=== PATIENT | female | born 1950 | race Caucasian/White ===

== ENCOUNTER 2019-06-05 16:23 | Inpatient (IN) ==
[2019-06-05] MEDS ORDERED: NS 1,000 ML IV ONE (16:39)
[2019-06-05] MEDS ORDERED: BENTYL IM ONE (16:40)
[2019-06-05] MEDS ORDERED: SODIUM CHLORIDE 0.9% INJ ONE (16:41)
[2019-06-05] MEDS ORDERED: PHENERGAN IV ONE (16:41)
--- NOTE | 2019-06-05 16:59 | Diag Imaging Result Doc PS360 ---
EXAM: CHEST-PORTABLE HISTORY: syncope TECHNIQUE: Single view COMPARISON: None. FINDINGS: The lungs are well expanded. The heart is not enlarged. The vessels are not distended. There are no infiltrates. No effusion identified. IMPRESSION: Negative exam. Electronically signed by Moshe Olson 06/05/2019 4:57 PM
[2019-06-05 17:37] LABS: BASO# 0.05 X1000 (0.0-0.2); BASO% 0.1 % (0.0-0.8); EOS# 0.03 X1000 (0.0-0.7); EOS% 0.1 % (0.0-10.0); HEMATOCRIT 42.3 % (37.0-47.0); HEMOGLOBIN 14.2 g/dL (12.0-16.0); IMM GRAN# 0.15 X1000 (0.0-0.04); IMM GRAN% 0.4 % (0.0-0.5); LYMPH# 2.57 X1000 (1.2-3.4); LYMPH% 7.4 % (20.5-51.1); MCH 30.3 PG (27-31); MCHC 33.6 g/dL (33-37); MCV 90.2 FL (81-99); MONO% 5.2 % (1.7-9.3); MPV 9.3 FL (7.4-10.4); NEUT# 29.98 X1000 (1.4-6.5); NEUT% 86.8 % (42.2-75.2); PLT 332 X1000 (130-400); RBC 4.69 XMIL (4.2-5.4); RDW 12.9 % (11.5-14.5); WBC 34.58 X1000 (4.8-10.8)
[2019-06-05 17:57] LABS: INR 1.42; PROTIME 17.6 Seconds (11.0-16.0)
[2019-06-05 17:58] LABS: PTT 38.4 Seconds (22.3-41.8)
--- NOTE | 2019-06-05 17:58 | EKG Report ---
Test Performed on : 06/05/2019 5:33:41 PM Test Reason : syncope Blood Pressure : / mmHG Vent. Rate : 069 BPM Atrial Rate : 069 BPM P-R Int : 154 ms QRS Dur : 076 ms QT Int : 396 ms P-R-T Axes : 000 107 -50 degrees QTc Int : 424 ms Normal sinus rhythm. Lateral infarct , age undetermined T wave abnormality, consider anterior ischemia Abnormal ECG No previous ECGs available Unconfirmed Result
[2019-06-05] MEDS ORDERED: LEVSIN-SL PO ONE (18:00)
[2019-06-05] MEDS ORDERED: LEVSIN PO ONE (18:00)
[2019-06-05 18:19] LABS: ALB/GLOB RATIO 1.4; ALBUMIN 4.1 g/dL (3.5-5.0); CALCIUM 9.2 mg/dL (8.8-10.2); CREATININE 1.6 mg/dL (0.5-0.9); POTASSIUM 3.1 mmol/L (3.5-5.1); TOTAL BILIRUBIN 0.45 mg/dL (0.20-1.00); TOTAL PROTEIN 7.1 g/dL (6.3-8.3)
[2019-06-05] MEDS ORDERED: ZOSYN 4.5 GM in NS 100 ML IV ONE (18:25)
[2019-06-05 18:31] LABS: ANISOCYTOSIS OCCASIONAL; BANDS 3 % (0-1); LYMPHS 6 % (21-51); MONO 4 % (1-9); SEGS 86 % (42-75)
[2019-06-05 18:37] LABS: URINE SOURCE CATH
[2019-06-05 18:44] LABS: BILIRUBIN URINE SMALL (NEGATIVE); BLOOD URINE TRACE (NEGATIVE); COLOR YELLOW; GLUCOSE URINE NEGATIVE (NEGATIVE); KETONE URINE TRACE mg/dL (NEGATIVE); LEUKOCYTES URINE TRACE (NEGATIVE); NITRITE URINE NEGATIVE (NEGATIVE); PH URINE 5.5; PROTEIN URINE 50 mg/dL (NEGATIVE); SP GRAVITY URINE 1.026; TURBIDITY URINE HAZY (CLEAR); UROBILINOGEN URINE 4 mg/dL (NORMAL)
[2019-06-05 18:45] LABS: UR EPITHELIAL CELLS <10 /HPF (<10); URINE BACTERIA 4+ /HPF; URINE RBC <10 /HPF (<10); URINE WBC <10 /HPF (<10)
--- NOTE | 2019-06-05 19:22 | Diag Imaging Result Doc PS360 ---
EXAM: CT ABDOMEN/PELVIS W/O CONTRAST - 06/05/2019 HISTORY: nausea and vomiting, abdominal pain TECHNIQUE: CT abdomen/pelvis without contrast. No contrast administered per request of the referring provider. COMPARISON: None. FINDINGS: There is some limitation of detail without administered contrast. The visualized lung bases appear clear except for slight dependent atelectasis or scarring. The gallbladder surgically absent. There is some prominence of the common bile duct which likely relates to the postcholecystectomy state. There is no calcified common duct stone identified. There is no pancreatic mass or inflammation identified. There are no substantial abnormalities of the liver, spleen, or adrenal glands identified. There is no renal stone or hydronephrosis identified. There are no substantial enlarged lymph nodes identified. There are atherosclerotic calcifications noted, including at the superior mesenteric artery. There is mild ectasia of the infrarenal aorta up to 2.5 x 2.3 cm. There is a small hiatal hernia. There is retained fluid in small bowel there is no indication of small bowel obstruction. There is mild diffuse distention of the colon with fecal debris. There is some fluid in the proximal colon. There is mild wall thickening along much of the colon with hazy infiltration of pericolic fat. This suggests colitis. There is no extraluminal gas or abscess identified. There is no free air or substantial free fluid identified. There has been prior hysterectomy. There is no abnormal pelvic mass or fluid collection identified. IMPRESSION: Apparent relatively generalized, relatively mild colitis. There is apparent underlying constipation. Retained fluid in small bowel which may relate to mild ileus or mild enteritis. No indication of small bowel obstruction. There is a small hiatal hernia. There are atherosclerotic calcifications noted, including at the superior mesenteric artery. There is mild ectasia of the infrarenal aorta up to 2.5 x 2.3 cm. This exam was performed using automated exposure control, adjustment of mA or kV according to patient size, and/or use of iterative reconstruction technique. Electronically signed by Sandro Soriano 06/05/2019 7:20 PM
[2019-06-05] MEDS ORDERED: MORPHINE IV ONE (19:31)
--- NOTE | 2019-06-05 20:10 | PROVIDER DOCUMENTATION ---
This chart was entered by Jennifer Barnes Scribe, acting as scribe for Zafar Amaro MD. HPI-Abdominal Pain/GI Problem - General Chief Complaint: Near Syncope Stated Complaint: NEAR SYNCOPE/ABD PAIN Time Seen by Provider: 06/05/19 16:36 Source: patient Allergies/Adverse Reactions: Patient Allergies Allergy/AdvReac Type Severity Reaction Status Date / Time No Known Allergies Allergy Verified 06/05/19 17:06 Home Medications: Home Medication List Medication Instructions Recorded Confirmed Last Taken Type Lisinopril/Hydrochlorothiazide 1 ea PO QPM 06/05/19 06/05/19 1 Day Ago History [Lisinopril-Hctz 20-12.5 mg Tab] ~06/04/19 Metoprolol [Lopressor] 50 mg PO QHS 06/05/19 06/05/19 1 Day Ago History ~06/04/19 Nifedipine [Procardia Xl] 30 mg PO QAM 06/05/19 06/05/19 06/05/19 History - History of Present Illness-ABD Nature of Presenting Problems: Patient is a 68 year old female who presents to the ED via EMS with generalized lower abdominal pain. States nausea, vomiting and lightheadedness with abdominal pain. Reports symptoms started this morning. Denies blood in emesis, urinary symptoms, chest pain and shortness of breath. EMS states giving patient zofran and NS prior to arrival. Abdominal Pain Onset Location: reports: other (generalized lower) Pain Radiation: reports: no radiation Quality of Pain: reports: dull, sharp Severity in ED: reports: mild Onset/Duration: reports: this morning Timing: reports: still present Activities at Onset: reports: light activity Associated Symptoms: reports: nausea, vomiting, other (lightheadedness) Emesis Description: denies: red blood, coffee grounds Bruising or Bleeding Gums?: No Similar Symptoms Previously?: No Recently seen or treated by another doctor?: No Review of Systems - Adult - REVIEW OF SYSTEMS - ADULT Constitutional: reports: no symptoms reported Eyes: reports: no symptoms reported Ears, Nose, Mouth & Throat: reports: no symptoms reported Cardiovascular: reports: no symptoms reported. denies: chest pain Respiratory: reports: no symptoms reported. denies: shortness of breath Gastrointestinal: reports: see HPI, abdominal pain (generalized lower), nausea, vomiting Genitourinary: reports: no symptoms reported Musculoskeletal: reports: no symptoms reported Integumentary: reports: no symptoms reported Neurological: reports: see HPI, other (lightheadedness). denies: headache/migraines, syncope Psychiatric: reports: no symptoms reported Endocrine: reports: no symptoms reported Hematologic/Lymphatic: reports: no symptoms reported Allergic/Immunologic: reports: no symptoms reported All Other Systems: Reviewed and Negative Past History - Adult - PAST MEDICAL HISTORY-ADULT Review of Records: reports: Old Records Reviewed, Nursing Assessment Review, Medications Reviewed, Social history reviewed & non-contributory. Major Childhood Illnesses: reports: denies history Cardiovascular: reports: HTN, ND Respiratory: reports: denies history Gastrointestinal: reports: denies history Obstetrical/Gynecological: reports: denies history Genitourinary: reports: denies history Musculoskeletal: reports: denies history Neurological: reports: CVA Endocrine/Immune: reports: denies history Other Conditions: reports: denies history - PRIOR SURGERIES/PROCEDURES Surgical/Procedure History: reports: reviewed, not pertinent, appendectomy, cholecystectomy, hysterectomy - IMMUNIZATION STATUS Childhood Immunizations: See Nurse Assessment Flu Vaccine: See Nurse Assessment - FAMILY HISTORY Family History: reviewed, not pertinent - SOCIAL HISTORY Smoking: denies Substance Use: denies Physical Exam-General - PHYSICAL EXAM-ADULT Initial Vital Signs Reviewed: Yes - CONSTITUTIONAL General Appearance: alert, no apparent distress. negative: lethargic - HEAD, EARS, NOSE, MOUTH & THROAT HENMT: normocephalic/atraumatic, moist mucous membranes. negative: angioedema - RESPIRATORY Respiratory: chest non-tender, lungs clear, normal breath sounds. negative: rales, increased rate - CARDIOVASCULAR Cardiovascular: regular rate, rhythm, no murmur. negative: tachycardia - GASTROINTESTINAL (ABDOMEN) Abdominal Exam: normal bowel sounds, soft, tenderness (RLQ, LLQ and suprapubic.) . negative: rigid - MUSCULOSKELETAL Extremity: non-tender, slow capillary refill. negative: swelling - SKIN Integumentary: normal turgor, warm/dry, pallor. negative: diaphoresis, rash - NEUROLOGIC Neurologic: grossly normal. negative: aphasia, facial droop - PSYCHIATRIC Psych/Mental Status: normal mood/affect, oriented x 3. negative: anxious Progress - PLAN OF CARE/RESULTS Progress/Plan/Lab Results: Vital Signs - 8 hr 06/05/19 16:41 Pulse Rate 54 L Respiratory Rate 16 Blood Pressure 90/44 O2 Sat by Pulse Oximetry 96 Orders Category Date Time Status CHEST-PORTABLE [RAD] Stat Exams 06/05/19 16:38 Taken BLOOD CULTURE [BLDCUL] Stat Lab 06/05/19 16:39 Ordered BNP [PRO B-NATRIURETIC PEPTIDE] Stat Lab 06/05/19 16:41 Uncollected CBC WITH ELECTRONIC DIFF [HEME] Stat Lab 06/05/19 16:38 Uncollected COMPREHENSIVE METABOLIC PANEL [CHEM] Stat Lab 06/05/19 16:38 Uncollected LACTATE, PLASMA [CHEM] Stat Lab 06/05/19 16:38 Uncollected LIPASE [CHEM] Stat Lab 06/05/19 16:38 Uncollected PROTIME WITH INR [COAG] Stat Lab 06/05/19 16:38 Uncollected PTT [COAG] Stat Lab 06/05/19 16:38 Uncollected TROPONIN T Stat Lab 06/05/19 16:38 Uncollected URINALYSIS W/POSS RFLX CULT [URINALYSIS] Stat Lab 06/05/19 16:38 Uncollected 0.9% Sodium Chloride Inj [Ns] 1,000 ml Med 06/05/19 16:39 Active IV 999 mls/hr Dicyclomine [Bentyl] Med 06/05/19 16:40 Discontinued 20 mg IM NOW ONE Hyoscyamine [Levsin] Med 06/05/19 16:40 Once 0.125 mg PO NOW ONE Promethazine [Phenergan] Med 06/05/19 16:41 Discontinued 25 mg IV NOW ONE Sodium Chloride 0.9% Med 06/05/19 16:41 Discontinued 10 ml INJ NOW ONE EKG [EKG] Stat Ther 06/05/19 16:[address] Camacho hospitalist for sepsis with zosyn and IV fluids with NS administered. Family and patient at bedside aware. Nausea much improved. Result Diagrams: 06/05/19 17:10 06/05/19 17:10 - EKG 1 Time of EKG reading by physician:: 17:33 EKG Read and Signed by:: Zafar Amaro EKG Interpretation (*Must complete 3 of following elements*): Normal Rate: 69 Rhythm: NSR [place]: normal QRS: normal MD Interval: normal ST Wave: normal Prior EKG Comparison: no prior EKG - XRAY 1 XRAY Study: Chest Impression: See EMR Report ( EXAM: CHEST-PORTABLE HISTORY: syncope TECHNIQUE: Single view COMPARISON: None. FINDINGS: The lungs are well expanded. The heart is not enlarged. The vessels are not distended. There are no infiltrates. No effusion identified. IMPRESSION: Negative exam. Electronically signed by Moshe Olson 06/05/2019 4:57 PM 06/05/19 2130 Interpreting Physician: Moshe Olson MD Dictated Date/Time: 06/05/19 5442 cc: Zafar Amaro MD; Wilfred Aggarwal MD) - CT/MRI 1 CT Study: Abdomen Impression: See EMR Report (EXAM: CT ABDOMEN/PELVIS W/O CONTRAST - 06/05/2019 HISTORY: nausea and vomiting, abdominal pain TECHNIQUE: CT abdomen/pelvis without contrast. No contrast administered per request of the referring provider. COMPARISON: None. FINDINGS: There is some limitation of detail without administered contrast. The visualized lung bases appear clear except for slight dependent atelectasis or scarring. The gallbladder surgically absent. There is some prominence of the common bile duct which likely relates to the postcholecystectomy state. There is no calcified common duct stone identified. There is no pancreatic mass or inflammation identified. There are no substantial abnormalities of the liver, spleen, or adrenal glands identified. There is no renal stone or hydronephrosis identified. There are no substantial enlarged lymph nodes identified. There are atherosclerotic calcifications noted, including at the superior mesenteric artery. There is mild ectasia of the infrarenal aorta up to 2.5 x 2.3 cm. There is a small hiatal hernia. There is retained fluid in small bowel there is no indication of small bowel obstruction. There is mild diffuse distention of the colon with fecal debris. There is some fluid in the proximal colon. There is mild wall thickening along much of the colon with hazy infiltration of pericolic fat. This suggests colitis. There is no extraluminal gas or abscess identified. There is no free air or substantial free fluid identified. There has been prior hysterectomy. There is no abnormal pelvic mass or fluid collection identified. IMPRESSION: Apparent relatively generalized, relatively mild colitis. There is apparent underlying constipation. Retained fluid in small bowel which may relate to mild ileus or mild enteritis. No indication of small bowel obstruction. There is a small hiatal hernia. There are atherosclerotic calcifications noted, including at the superior mesenteric artery. There is mild ectasia of the infrarenal aorta up to 2.5 x 2.3 cm. This exam was performed using automated exposure control, adjustment of mA or kV according to patient size, and/or use of iterative reconstruction technique. Electronically signed by Sandro Soriano 06/05/2019 7:20 PM) Comparison with other Films: no prior study Departure - Departure Date of Disposition Decision: 06/05/19 Time of Disposition Decision: 20:08 DIAGNOSIS: Sepsis, Nausea and vomiting, Urinary tract infection, Colitis Disposition: ADMITTED INPATIENT 09 Certified Medical Emergency: Emergent Condition: Fair Referrals and Follow-Ups: Wilfred Aggarwal MD [Primary Care Provider] - Discharge Education: Steps to Quit Smoking, [id number] - Critical Care Note This patient required my direct & personal management of CC.: No Attestation - Physician/ MARYBETH Attestation The physician spent face to face time with patient:: Yes Advanced Practice Provider documentation review:: Supervising physician onsite and consulted in the evaluation and care of this patient. The physician did have a face to face encounter with the patient. This chart was documented by the indicated scribe, (Jennifer Barnes Scribe) and accurately reflects the services I performed and decisions made by me, Zafar Amaro MD, as attested by the provider's signature.
--- NOTE | 2019-06-05 21:07 | HISTORY AND PHYSICAL ---
REASON FOR ADMISSION: Fever chills, and abdominal pain for 1 and 2 days respectively. HISTORY OF PRESENT ILLNESS: Ms. Ankita Barber is a 68-year-old woman with past medical history of hypertension, prior CVA, CAD status post stent placement. She states that for the last 2 days she was having lower abdominal pain which was initially intermittent and dull. Today, the pain became constant with intermittent episodes of sharp lower abdominal pain, which started a few seconds at a time. No specific aggravating or relieving factors. No diarrhea. She says she has had 1 large bowel movement while she has been in the hospital ER area and it was nonbloody, non- melanotic and semi-solid. She reports that she came in today because she was having intractable vomiting with the exacerbation of her abdominal pain. She has vomited 8 times. No coffee grounds or hematemesis. The patient reports having chills with profound diaphoresis, but no fever. Denies any flank pain. Denies any cough or cardiorespiratory complaints. Denies any genitourinary complaints. No bleeding from any orifice. No close contacts from a respiratory or GI standpoint. REVIEW OF SYSTEMS: Twelve system review was done. Positive findings per HPI. Allergies: None. HOME MEDICATIONS: Include lisinopril/hydrochlorothiazide 1 tab a day dose unknown, Lopressor 50 mg at bedtime, Procardia 30 mg q.a.m. SOCIAL HISTORY: Smokes 1 to 2 packs a day and drinks alcohol no more than every other month socially. No illicit drug use. , lives with her . FAMILY HISTORY: Notable for type 2 diabetes and heart disease in first-degree relatives. SURGICAL HISTORY: She has had a coronary stent placement, cholecystectomy, hysterectomy, appendectomy, knee surgery. LABORATORY WORK: Patient has a white count of 34,000 with a H H of 14 and 42, platelets 332,000, with a left shift of 86. Potassium is 3.1, BUN is 18, creatinine 1.6, with no prior labs to compare with. Glucose 156. Troponins negative. ProBNP 788, lactate 1.8. PT 17.6, INR 1.4, PTT is normal. Urinalysis is 4+ bacteria with trace ketones, trace leukocytes. Abdomen and pelvis CT showed fluid retention in the small bowel which may relate to small enteritis and calcifications superior mesenteric artery with mild colitis and underlying constipation. Chest film was done and it showed negative exam. PHYSICAL EXAMINATION: VITAL SIGNS: Blood pressure was 105/37, heart rate 64, respirations 18, temperature was 95.6, 98% on room air. GENERAL: She is a thin, middle-aged woman not in acute distress. She is alert and oriented to person, place and time. Normal mood and affect. HEAD: Normocephalic, atraumatic. EYES: PERRLA. EOMI. Anicteric and not pale. ENT: Oropharynx examination is grossly normal with mild xerostomia. No sinus cyanosis. NECK: Supple. No JVD or carotid bruit. No thyromegaly. CHEST: Clear when auscultated and good air entry in both lung mobley. CARDIOVASCULAR SYSTEM: First and second heart sounds heard. No gallops, murmurs, rubs. Rhythm is regular. ABDOMEN: Scaphoid, soft, with tenderness confined to the suprapubic and left lower quadrant area, but no rebound or guarding appreciated. There is questionable left CVA tenderness. Bowel sounds are normal. EXTREMITIES: Patient has decreased distal pulse volumes, regular, symmetrical. No edema, clubbing or cyanosis. NEUROLOGICAL SYSTEM: No gross focal deficits. SKIN: Intact. No breakdown or erythema with decreased skin turgor. MUSCULAR EXAM: Is grossly normal. ASSESSMENT: 1. Early sepsis, secondary to colitis and probable urinary tract infection. 2. Coronary artery disease. 3. Hypertension. 4. Probable acute kidney injury secondary to decreased intravascular volume and use of TATIANA inhibitors. PLAN: We will aggressively resuscitate patient with crystalloids. Continue with antibiotics in the ER, i.e. Zosyn to cover for colitis and urinary tract infection. Await urine cultures and blood cultures. Very conservative blood pressure control and parameters have been ordered. We will start the patient on a baby aspirin, especially since is no contraindication, being that she has had a stroke and she has documented peripheral arterial disease in the SMA and a prior history of a myocardial infarction. Other cardiac workup should be embarked upon and we will defer to Dr. Aggarwal for this. cc: MD Wilfred Whiting MD
[2019-06-05] MEDS ORDERED: TYLENOL PO PRN (22:52)
[2019-06-06] MEDS: ASPIRIN PO SCH ×2 (00:01→08:36)
[2019-06-06] MEDS: MORPHINE IV PRN ×5 (00:02→15:39)
[2019-06-06] MEDS: ZOSYN 3.375 GM in NS 50 ML IV SCH ×4 (00:02→18:02)
[2019-06-06] MEDS: NS 1,000 ML IV SCH ×3 (00:03→18:19)
[2019-06-06] MEDS: LOPRESSOR PO SCH ×2 (00:03→21:43)
[2019-06-06] MEDS: LOVENOX SUBQ SCH ×2 (00:03→23:09)
[2019-06-06 07:37] LABS: BASO# 0.01 X1000 (0.0-0.2); BASO% 0.1 % (0.0-0.8); HEMOGLOBIN 12.6 g/dL (12.0-16.0); IMM GRAN# 0.04 X1000 (0.0-0.04); IMM GRAN% 0.2 % (0.0-0.5); LYMPH# 1.88 X1000 (1.2-3.4); LYMPH% 11.2 % (20.5-51.1); MCH 30.1 PG (27-31); MCHC 33.2 g/dL (33-37); MCV 90.7 FL (81-99); MONO# 0.71 X1000 (0.11-0.59); MONO% 4.2 % (1.7-9.3); MPV 9.6 FL (7.4-10.4); NEUT# 14.08 X1000 (1.4-6.5); NEUT% 84.3 % (42.2-75.2); PLT 244 X1000 (130-400); RBC 4.19 XMIL (4.2-5.4); RDW 12.8 % (11.5-14.5); WBC 16.72 X1000 (4.8-10.8)
[2019-06-06 08:01] LABS: CALCIUM 8.2 mg/dL (8.8-10.2); CREATININE 1.2 mg/dL (0.5-0.9); MAGNESIUM 1.4 mg/dL (1.5-2.7); POTASSIUM 3.3 mmol/L (3.5-5.1)
[2019-06-06] MEDS: ADALAT CC PO SCH ×2 (08:36→10:09)
--- NOTE | 2019-06-06 09:19 | PROGRESS NOTE ---
DATE: 06/06/2019 Ms De Leon was admitted last night for early sepsis. She had abdominal pain. At present. She is doing fairly well, except her temperature is still 101.6. The culture studies are not back yet. Waiting on blood cultures as well as urine cultures. She is on IV Unasyn. We will continue with the current management on her. cc: Wilfred Aggarwal MD
[2019-06-06] MEDS ORDERED: MORPHINE IV PRN (17:08)
[2019-06-06] MEDS: NORCO-10 PO PRN (18:12)
[2019-06-06 19:05] LABS: BASO# 0.02 X1000 (0.0-0.2); BASO% 0.1 % (0.0-0.8); EOS# 0.01 X1000 (0.0-0.7); EOS% 0.1 % (0.0-10.0); HEMATOCRIT 34.3 % (37.0-47.0); HEMOGLOBIN 11.2 g/dL (12.0-16.0); IMM GRAN# 0.03 X1000 (0.0-0.04); IMM GRAN% 0.2 % (0.0-0.5); LYMPH# 1.64 X1000 (1.2-3.4); LYMPH% 11.6 % (20.5-51.1); MCH 29.9 PG (27-31); MCHC 32.7 g/dL (33-37); MCV 91.5 FL (81-99); MONO% 4.2 % (1.7-9.3); MPV 9.2 FL (7.4-10.4); NEUT# 11.82 X1000 (1.4-6.5); NEUT% 83.8 % (42.2-75.2); PLT 199 X1000 (130-400); RBC 3.75 XMIL (4.2-5.4); RDW 12.9 % (11.5-14.5); WBC 14.12 X1000 (4.8-10.8)
[2019-06-07] MEDS: ZOSYN 3.375 GM in NS 50 ML IV SCH ×4 (01:00→17:43)
[2019-06-07] MEDS: NORCO-10 PO PRN ×4 (04:21→22:21)
[2019-06-07 07:26] LABS: BASO# 0.02 X1000 (0.0-0.2); BASO% 0.1 % (0.0-0.8); EOS# 0.01 X1000 (0.0-0.7); EOS% 0.1 % (0.0-10.0); HEMATOCRIT 33.5 % (37.0-47.0); HEMOGLOBIN 10.9 g/dL (12.0-16.0); IMM GRAN# 0.03 X1000 (0.0-0.04); IMM GRAN% 0.2 % (0.0-0.5); LYMPH# 1.89 X1000 (1.2-3.4); LYMPH% 13.6 % (20.5-51.1); MCH 29.6 PG (27-31); MCHC 32.5 g/dL (33-37); MONO# 0.68 X1000 (0.11-0.59); MONO% 4.9 % (1.7-9.3); MPV 9.4 FL (7.4-10.4); NEUT# 11.24 X1000 (1.4-6.5); NEUT% 81.1 % (42.2-75.2); PLT 182 X1000 (130-400); RBC 3.68 XMIL (4.2-5.4); RDW 12.9 % (11.5-14.5); WBC 13.87 X1000 (4.8-10.8)
[2019-06-07] MEDS: ADALAT CC PO SCH (09:27)
--- NOTE | 2019-06-07 11:01 | PROGRESS NOTE ---
DATE: 06/07/2019 SUBJECTIVE: The patient says she is feeling much better. Still having some abdominal pain. Had a little blood in her stool yesterday but none today. OBJECTIVE: Blood pressure is 131/57, respirations 20, pulse 80, temperature 98.2 degrees Fahrenheit. HEENT: She is normocephalic and atraumatic. PERRLA. Nose clear. Lungs: Clear to auscultation and percussion without rhonchi, rales or wheezes. Heart: Sounds regular rate and rhythm with murmurs, gallops or friction rubs. Abdomen: Soft with only mild tenderness on palpation. Neurologic: Intact grossly. Potassium was low at 3.3 yesterday. We will supplement. Since she does have a colitis, we will add Flagyl. Since she is improving, we will hold off on getting GI to see her today. Dr. Aggarwal can decide if she gets worse if she needs to see Dr. Banks, her staff mechanical engineer, again. FINAL DIAGNOSES: 1. Colitis. 2. Urinary tract infection. 3. Hypokalemia. cc: MD Wilfred Do Jr, MD
[2019-06-07] MEDS: KLOR-CON PO SCH (11:02)
[2019-06-07] MEDS: FLAGYL PO SCH ×2 (13:04→20:27)
[2019-06-07] MEDS: LOPRESSOR PO SCH (20:14)
[2019-06-07] MEDS: LOVENOX SUBQ SCH ×2 (20:28→22:21)
[2019-06-07] MEDS: ASPIRIN PO SCH (20:28)
[2019-06-07] MEDS: ZOFRAN IV PRN (20:33)
[2019-06-08] MEDS: ZOSYN 3.375 GM in NS 50 ML IV SCH ×4 (02:10→20:06)
[2019-06-08] MEDS: NORCO-10 PO PRN ×4 (04:32→22:36)
[2019-06-08] MEDS: FLAGYL PO SCH ×3 (04:32→20:06)
[2019-06-08 07:17] LABS: BASO# 0.02 X1000 (0.0-0.2); BASO% 0.2 % (0.0-0.8); EOS# 0.03 X1000 (0.0-0.7); EOS% 0.3 % (0.0-10.0); HEMATOCRIT 33.3 % (37.0-47.0); HEMOGLOBIN 10.8 g/dL (12.0-16.0); LYMPH# 1.95 X1000 (1.2-3.4); LYMPH% 19.7 % (20.5-51.1); MCH 29.7 PG (27-31); MCHC 32.4 g/dL (33-37); MCV 91.5 FL (81-99); MONO# 0.68 X1000 (0.11-0.59); MONO% 6.9 % (1.7-9.3); MPV 9.2 FL (7.4-10.4); NEUT# 7.24 X1000 (1.4-6.5); NEUT% 72.9 % (42.2-75.2); PLT 185 X1000 (130-400); RBC 3.64 XMIL (4.2-5.4); RDW 12.6 % (11.5-14.5); WBC 9.92 X1000 (4.8-10.8)
[2019-06-08 07:35] LABS: CALCIUM 8.3 mg/dL (8.8-10.2); POTASSIUM 3.1 mmol/L (3.5-5.1)
[2019-06-08] MEDS: ZOFRAN IV PRN (08:50)
[2019-06-08] MEDS: ASPIRIN PO SCH (10:38)
[2019-06-08] MEDS: KLOR-CON PO SCH (10:39)
--- NOTE | 2019-06-08 10:55 | PROGRESS NOTE ---
DATE: 06/08/2019 Ms. Barber' white count has come down to 9.92. She is feeling better. She still is tender in her abdomen. She has bloody stools, indicating probably colitis. We are going to get a GI consult with Dr. Banks. Her urine culture grew Escherichia coli sensitive to most of the antibiotics. She has been on IV piperacillin, which I am going to continue. Will get a GI consult with Dr. Banks. Give her some tramadol for pain. -5 cc: Wilfred Aggarwal MD
[2019-06-08] MEDS: ADALAT CC PO SCH (11:04)
[2019-06-08] MEDS ORDERED: SODIUM CHLORIDE 0.9% INJ SCH (11:30)
--- NOTE | 2019-06-08 13:19 | GASTROENTEROLOGY CONSULTATION ---
DATE: 06/08/2019 REASON FOR CONSULTATION: Rectal bleeding. HISTORY OF PRESENT ILLNESS: Ms. Barber is a 68-year-old female who was admitted on 06/05/2019 for abdominal pain for 2 days, constipation, fever and chills. She said she had a fecal impaction and then she started hurting in her abdomen because of constipation and not being able to use the bathroom. She came to the hospital. In the ER, she had 1 large bowel movement which helped relieve her pain. Along with abdominal pain, she also had nausea, vomiting. She vomited about 8 times on the day of admission. Denies any vomiting blood. After her fecal impaction had improved, she started having liquid stools with bright red blood. Her last colonoscopy was done more than [address] Banks and she had 3 polyps and at that time she had C difficile infection in the colon which was treated with antibiotics. Since being in the hospital, she has been continuing to have stools with bright red blood mixed with them. She has been on Lovenox for DVT prophylaxis and she has been getting treatment with IV antibiotics in the form of Zosyn. She had CT of the abdomen and pelvis done on admission which showed: 1. Atherosclerotic calcification including the superior mesenteric artery. 2. Small hiatal hernia. 3. Mild diffuse distention of the colon with fecal debris. 4. Some fluid in the proximal colon. 5. Mild wall thickening along much of the colon with hazy infiltration of pericolonic fat suggesting colitis. No evidence of free air or extraluminal gas or abscess identified. There has been prior hysterectomy. Since being in the hospital, her blood cultures have been drawn which have been negative. Urine culture showed E coli. Gastroenterology was consulted for further management including colonoscopy. PAST MEDICAL HISTORY: Hypertension, CVA, CAD, stent placement, colon polyps, C difficile infection. PAST SURGICAL HISTORY: Coronary artery stent placement, cholecystectomy, hysterectomy, appendectomy, knee surgery, colonoscopy more than [address] Banks. FAMILY HISTORY: Type 2 diabetes and heart disease. SOCIAL HISTORY: Smokes 1 to 2 packs a day. She drinks alcohol, no more than once every other month socially. No history of illicit drug abuse. She is , she lives her . MEDICATIONS IN THE HOSPITAL: Include Lopressor, Flagyl, Tylenol, aspirin, Lovenox, Pepcid, hydrocodone/acetaminophen, morphine, nifedipine ER, Zofran, potassium chloride, tramadol 50 mg p.o. q.6 hours, Zosyn 3.375 g IV q.6 hours, and the patient is currently on a clear liquid diet. REVIEW OF SYSTEMS: Denies any fevers, rigors, chills, chest pain, shortness of breath, dyspnea. Denies any vomiting blood. Does complain of blood in the stools. Denies any major arthritis. Denies any neurologic complaints. PHYSICAL EXAMINATION: Vital signs: Temperature of 98.6 degrees, pulse rate 79, respiratory rate 19, blood pressure 160/68, saturating 92% on room air. Body weight of 125 pounds 3 ounces. BMI 24.4 kg/m2. General: Thinly built, lying in bed, in no acute distress. HEENT: Positive pallor. No icterus. Pupils equal, reactive to light. Neck: Supple. Abdomen: Discomfort in the left lower quadrant. No rebound or guarding. Extremities: No cyanosis, clubbing. Neurologic: She is alert, awake, oriented x3. LABORATORY DATA: 1. Hemoglobin and hematocrit is 10.8 and 33.3, white count 9.92, platelet count of 185,000. Sodium 139, potassium 3.1, chloride 101, bicarb 24, anion gap 14, BUN of 9, creatinine 1, glucose of 112, calcium is 8.3. AST 17, ALT 6, alkaline phosphatase 89, total protein is 7.4, albumin of 4.1. 2. Urinalysis showing positive protein, trace ketones, trace blood, small bilirubin, trace leukocytes, and E coli on urine culture. IMAGING: CT scan as noted in HPI. Chest x-ray on 06/05/2019 showed negative exam. IMPRESSION: 1. Rectal bleeding. 2. Colitis. 3. Chronic smoker. 4. 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 5. History of Clostridium difficile colitis more than 20 years ago. 6. History of colon polyps more than 20 years ago. 7. Hypertension. 8. History of cerebrovascular accident. 9. History of coronary artery disease. 10. History of coronary stent placement. RECOMMENDATIONS: 1. We will continue the patient on clear liquid diet. We will schedule for colonoscopy tomorrow with Dr. Mosqueda. We will hold Lovenox in the morning. We will continue on IV antibiotics, IV antiemetics, and IV Pepcid b.i.d. Continue pain control with morphine. Her blood pressure is being managed by the primary care team here. 2. We will start her on probiotics with Culturelle as she had a prior history of C difficile colitis and she is continuing antibiotics. She was counseled to quit smoking completely. 3. Mild anemia. Continue to watch for now and hopefully will improve after treatment of colitis. If anemia worsens, then we will transfuse her to keep the hemoglobin more than 7 g/dL. The above plans were discussed with the patient and all questions answered. Please call us with any further questions. Thank you for allowing us to participate. cc: MD Wilfred Ortega MD
[2019-06-08] MEDS: CULTURELLE PO SCH ×2 (13:21→20:06)
[2019-06-08] MEDS: ULTRAM PO PRN ×2 (13:21→20:06)
[2019-06-08] MEDS: PEPCID IV SCH ×2 (13:22→23:45)
[2019-06-08] MEDS ORDERED: GOLYTELY PO ONE (14:00)
[2019-06-08] MEDS: LOPRESSOR PO SCH (20:06)
[2019-06-08] MEDS: LOVENOX SUBQ SCH (23:00)
[2019-06-09] MEDS: ZOSYN 3.375 GM in NS 50 ML IV SCH ×2 (02:18→09:31)
[2019-06-09] MEDS: FLAGYL PO SCH (04:20)
[2019-06-09] MEDS: ZOFRAN IV PRN (04:43)
[2019-06-09] MEDS ORDERED: DIPRIVAN 1% 0 MG/0 ML BOTTLE ONE (06:53)
[2019-06-09] MEDS ORDERED: FENTANYL ONE (07:03)
[2019-06-09] MEDS ORDERED: XYLOCAINE-MPF 2% ONE (07:05)
[2019-06-09 07:44] LABS: BASO# 0.02 X1000 (0.0-0.2); BASO% 0.2 % (0.0-0.8); EOS# 0.01 X1000 (0.0-0.7); EOS% 0.1 % (0.0-10.0); HEMATOCRIT 34.1 % (37.0-47.0); HEMOGLOBIN 11.1 g/dL (12.0-16.0); LYMPH# 1.79 X1000 (1.2-3.4); LYMPH% 22.2 % (20.5-51.1); MCH 29.8 PG (27-31); MCHC 32.6 g/dL (33-37); MCV 91.7 FL (81-99); MONO# 0.73 X1000 (0.11-0.59); MONO% 9.1 % (1.7-9.3); MPV 9.3 FL (7.4-10.4); NEUT# 5.51 X1000 (1.4-6.5); NEUT% 68.4 % (42.2-75.2); PLT 245 X1000 (130-400); RBC 3.72 XMIL (4.2-5.4); RDW 12.7 % (11.5-14.5); WBC 8.06 X1000 (4.8-10.8)
[2019-06-09 07:53] LABS: AGAP 17; BUN 7 mg/dL (8-22); CALCIUM 8.4 mg/dL (8.8-10.2); CHLORIDE 96 mmol/L (98-107); COSMO 269; CREATININE 0.9 mg/dL (0.5-0.9); ESTIMATED GFR > 60; GLUCOSE 90 mg/dL (70-104); POTASSIUM 3.2 mmol/L (3.5-5.1); SODIUM 136 mmol/L (136-145); TCO2 23 mmol/L (25-35)
[2019-06-09 09:23] VITALS: BP 150/61
[2019-06-09] MEDS: NORCO-10 PO PRN (09:30)
[2019-06-09] MEDS: CULTURELLE PO SCH (09:31)
[2019-06-09] MEDS: ADALAT CC PO SCH (09:32)
[2019-06-09] MEDS: ASPIRIN PO SCH (09:32)
[2019-06-09] MEDS: KLOR-CON PO SCH (09:32)
--- NOTE | 2019-06-09 11:01 | PROGRESS NOTE ---
DATE: 06/09/2019 SUBJECTIVE: Ms. Barber has Escherichia coli isolated from the urine, which is sensitive to all the antibiotics including levofloxacin. Her stool is negative for Clostridium difficile antigen as well as Clostridium difficile toxin. She was suppose to have colonoscopy this morning by Dr. Mejia, however, she refused on account of the timing schedule, and she has decided to go home. We will discharge her today. I have given her a prescription of Tramadol 50 mg t.i.d. p.r.n. 30 tablets and Levaquin 500 mg daily for 7 days. We will see her in the office in about 10 days. cc: Wilfred Aggarwal MD
--- NOTE | 2019-06-09 14:33 | DISCHARGE SUMMARY ---
ADMISSION DATE: 06/05/2019 DISCHARGE DATE: 06/09/2019 HISTORY: Ms. Barber who is a 68-year-old white female was admitted with high fever and abdominal pain. DIAGNOSTIC DATA: EKG revealed lateral wall infarct and normal sinus rhythm 218, changes suggested ischemia. CT scan of the abdomen revealed mild colitis. There was apparent underlying constipation and there was some retained fluid which may be related to mild ileus. No indication of small bowel obstruction. Small hiatal hernia was noted, atherosclerotic calcifications noted including in the superior mesenteric artery. There was mild ectasia of the infrarenal aorta. There were no renal stones. No substantially enlarged lymph glands noted. Chest x-ray was negative exam. Urine culture grew Escherichia coli sensitive to all antibiotics, Clostridium difficile toxin as well as antigen negative. LABORATORY DATA: Revealed white count initially was 34.58, which came down to 8.06 indicating the sepsis with 86.8% neutrophils. INR was 1.43, potassium is still low, it is 3.2 this morning. We will give her some extra potassium to take. BUN and creatinine were negative. Urinalysis revealed nitrites were negative. However, urine culture was positive. There were 4+ bacteria. DISCHARGE MEDICATIONS: She will be discharged today with tramadol 50 mg t.i.d. p.r.n. 30. Levaquin 500 mg daily for 7 days and KCl 10 mEq once daily for the next 30 days. FINAL DIAGNOSIS: Sepsis due to Escherichia coli urinary tract infection, colitis. The patient refused colonoscopy and we will schedule it with Dr. Banks as an outpatient later on. cc: Wilfred Aggarwal MD
--- NOTE | 2019-06-09 14:51 | PROVIDER PROGRESS NOTE ---
Progress Note S: Patient drank very little prep overnight and refused colonoscopy this AM. She opted to follow-up as outpatient for diagnostic colonoscopy. She denies further rectal bleeding, N/V, or abdominal pain. O: Last Vital Signs Temp 98.0 F 06/09/19 09:22 Pulse 66 06/09/19 09:22 Resp 16 06/09/19 09:22 BP 150/61 06/09/19 09:22 Pulse Ox 97 06/09/19 09:22 Height 5 ft Weight 125 lb 3 oz GEN: awake, alert, NAD HEENT: anicteric, MMM NECK: supple, no JVD CV: RRR, no murmurs LUNGS: normal WOB, clear ABD: soft NT/ND, NABS EXT: no cce NEURO: nonfocal, ambulatory LABS: 06/09/19 06/09/19 06:57 06:57 WBC 8.06 Hgb 11.1 L Plt Count 245 D Sodium 136 Potassium 3.2 L Chloride 96 L Carbon Dioxide 23 L BUN 7 L Creatinine 0.9 A/P: Ms. Ankita Perera is a 68 year old woman with tobacco abuse, h/o colonic polyps, and CAD s/p stent placement who presented with hematochezia, acute blood loss anemia, colitis on imaging, and E coli UTI. Patient is refusing inpatient colonoscopy. Her hgb is stable. Labs show hypokalemia. # Hematochezia: recommend outpatient colonoscopy per patient's request; avoid blood thinners # Anemia: from above # Colitis: no abdominal pain; stool studies negative; unlikely IBD; possible ischemic vs infectious # E coli UTI: on abx per primary # Tobacco abuse: encourage smoking cessation Patient discharged. Encouraged to follow-up with GI in 2-4 weeks
== END 2019-06-09 11:50 | disposition home or self-care (01) ==
LOC: SUPCPDRO → ED 16:23 → SUATTDRO 22:23 → 3N 22:23
PROVIDERS: ADMIT Internal Medicine; ATTEND Internal Medicine